=== PATIENT | female | born 1950 | race Two or more races ===

== ENCOUNTER 2020-06-18 00:39 | Inpatient (IN) | payer MEDICARE, OTHER ==
[~2020-06-18] VITALS: Ht 162.6 cm; Wt 136.6 kg
[2020-06-18] MEDS ORDERED: methylPREDNISolone SOD SUCC 125 MG/2ML VIAL ONE (00:55)
[2020-06-18] MEDS ORDERED: ACETAMINOPHEN 325 MG TABLET PO ONE (01:00)
[2020-06-18] MEDS ORDERED: ALBUTEROL FS 2.5 MG/3 ML VIAL.NEB ONE (01:00)
[2020-06-18] MEDS ORDERED: methylPREDNISolone SOD SUCC 125 MG/2ML VIAL IV ONE (01:00)
[2020-06-18] MEDS ORDERED: ALBUTEROL FS 2.5 MG/3 ML VIAL.NEB NEB ONE (01:00)
--- NOTE | 2020-06-18 01:00 | NUR ---
BIBEMS C/O RAPID HEART RATE 160'S, ADENOSINE 6MG IVP GIVEN - HR-80'S. PT AOX4 BEBO WHEEZING NOTED. PER RA PLACED IV ON LEFT FA 20G. PT GOWNED AND PLACED ON MONITOR. DR. SCHMITZ AT BEDSIDE FOR EVAL.
[2020-06-18] MEDS ORDERED: ACETAMINOPHEN ES 500 MG TABLET ONE (01:02)
--- NOTE | 2020-06-18 01:05 | NUR ---
PT NOTED WITH ROOM AIR 02 AT 89%, PT PLACED ON NC 2L, RT AT BEDSIDE FOR BREATHING TX
[2020-06-18 01:10] LABS: BASOPHILS # (AUTO) 0.1 /CMM (0.0-0.2); BASOPHILS % (AUTO) 0.6 % (0.0-2.0); EOSINOPHILS % (AUTO) 2.6 % (0.0-6.0); HEMATOCRIT 39 % (33-45); HEMOGLOBIN 12.6 g/dL (11.5-14.8); LYMPHOCYTES % (AUTO) 26.8 % (20.0-44.0); MEAN CORPUSCULAR HGB CONC 32 g/dl (31.0-36.0); MEAN CORPUSCULAR VOLUME 85 fL (82-100); MONOCYTES # (AUTO) 0.8 /CMM (0.1-1.30); MONOCYTES % (AUTO) 7.3 % (2.0-12.0); NEUTROPHILS % (AUTO) 62.7 % (43.0-81.0); PLATELET COUNT (AUTO) 426 /CMM (150-450); RED BLOOD CELL COUNT(AUTO) 4.57 MIL/uL (4.0-5.2); WHITE BLOOD COUNT (AUTO) 11.1 K/uL (4.3-11.0)
--- NOTE | 2020-06-18 01:13 | NUR ---
CALLED LAB FOR COVID TEST.
--- NOTE | 2020-06-18 01:15 | NUR ---
RT called for neb tx. pt found on ra, saturation 88%. per rn, wanted to see pt's baseline saturation. lung sounds: expiratory rhonchi throughout. no sob, no resp distress. will reassess post tx.
--- NOTE | 2020-06-18 01:16 | NUR ---
COVID SWABS COLLECTED. SENT TO LAB
--- NOTE | 2020-06-18 01:22 | NUR ---
S/P BREATHING TX PT NOTED AT 91% ON 3LNC. DR. SCHMITZ AWARE
[2020-06-18] MEDS ORDERED: IPRATROPIUM NEB FS 0.5 MG/2.5 ML AMPUL.NEB ONE (01:24)
[2020-06-18] MEDS ORDERED: ALBUTEROL FS 2.5 MG/0.5 ML VIAL.NEB ONE (01:24)
[2020-06-18] MEDS ORDERED: CEFTRIAXONE 1GM BAG (ER ONLY) 50 ML IV ONE (01:25)
[2020-06-18] MEDS ORDERED: CEFTRIAXONE 1GM BAG (ER ONLY) 1 GM/50 ML PIGGYBACK IV ONE (01:30)
[2020-06-18] MEDS ORDERED: ALBUTEROL FS 2.5 MG/0.5 ML VIAL.NEB NEB ONE (01:30)
[2020-06-18] MEDS ORDERED: IPRATROPIUM NEB FS 0.5 MG/2.5 ML AMPUL.NEB NEB ONE (01:30)
[2020-06-18] MEDS ORDERED: AZITHROMYCIN 500 MG in IV D5W 250 ML IV ONE (01:30)
[2020-06-18] MEDS ORDERED: AZITHROMYCIN 500 MG VIAL ONE (01:32)
[2020-06-18 01:33] LABS: ALANINE AMINOTRANSFERASE 20 U/L (12-78); ALBUMIN 3.5 g/dL (3.4-5.0); ALKALINE PHOSPHATASE 83 U/L (46-116); ASPARTATE AMINOTRANSFERASE 14 U/L (15-37); B-TYPE NATRIURETIC PEPTIDE 601 PG/ML (0-125); BILIRUBIN,DIRECT 0.1 mg/dL (0.0-0.2); BILIRUBIN,TOTAL 0.5 mg/dL (0.2-1.0); CALCIUM, SERUM 9.2 mg/dL (8.5-10.1); CARBON DIOXIDE 29 mmol/L (21-32); CHLORIDE 105 mmol/L (98-107); CREATININE 0.8 mg/dL (0.6-1.3); GLUCOSE 134 mg/dL (74-106); POTASSIUM 4.2 mmol/L (3.5-5.1); SODIUM SERUM 141 mmol/L (136-145); TOTAL PROTEIN, SERUM 7.7 g/dL (6.4-8.2); UREA NITROGEN, BLOOD 22 mg/dL (7-18)
--- NOTE | 2020-06-18 01:40 | NUR ---
RT post tx pt states breathing better. lung sounds insp/exp rhonchi with insp wheezing. placed on 3 lnc. will recommend another tx to .
--- NOTE | 2020-06-18 01:41 | NUR ---
DR. FARLEY PAGED PER ER ORDER.
--- NOTE | 2020-06-18 01:56 | NUR ---
REC'D NEG COVID RESULTS. AWARE
[2020-06-18] MEDS ORDERED: FUROSEMIDE 40 MG/4 ML VIAL ONE (01:58)
--- NOTE | 2020-06-18 01:58 | NUR ---
RT post tx insp/exp wheezing. saturation 91% on 3lnc. no sob, no resp distress. per md, maintain as long as no sob/distress
[2020-06-18] MEDS ORDERED: FUROSEMIDE 40 MG/4 ML VIAL IV ONE (02:00)
[2020-06-18] MEDS ORDERED: ZOLPIDEM TARTRATE 5 MG TABLET PO PRN (02:30)
[2020-06-18] MEDS ORDERED: ACETAMINOPHEN 325 MG TABLET PO PRN (02:30)
[2020-06-18] MEDS ORDERED: MAGNESIUM HYDROXIDE 30 ML UDC PO PRN (02:30)
[2020-06-18] MEDS ORDERED: ENOXAPARIN SODIUM 40 MG/0.4 ML DISP.SYRIN SQ SCH ×2 (02:30→03:41)
[2020-06-18] MEDS ORDERED: MAG HYDROX/AL HYDROX/SIMETH 30 ML UDC PO PRN (02:30)
[2020-06-18] MEDS ORDERED: Z GUARD REMEDY 2 OZ OINT TP PRN (02:30)
[2020-06-18] MEDS ORDERED: ENOXAPARIN SODIUM 60 MG/0.6 ML DISP.SYRIN SQ ONE (02:40)
--- NOTE | 2020-06-18 03:10 | NUR ---
PT ASLEEP, VSS.
--- NOTE | 2020-06-18 04:06 | NUR ---
PT REMAINS ASLEEP, VSS.
--- NOTE | 2020-06-18 04:07 | NUR ---
CURRENTLY ON 3L NC, SAT 90%.
--- NOTE | 2020-06-18 04:16 | NUR ---
PT WAS ASLEEP, USING HER MOUTH TO BREATH. PT SAT 84%. SIMPLE MASK PLACED ON PT AT 10L. NOW SAT93%.
[2020-06-18] MEDS: NITROGLYCERIN PACKET 1 GM PACKET TOP SCH ×2 (04:20→16:28)
[2020-06-18] MEDS ORDERED: NITROGLYCERIN PACKET 1 GM PACKET ONE (04:20)
--- NOTE | 2020-06-18 06:33 | NUR ---
PT REMAINS ASLEEP, VSS. PROVIDED WITH BLANKETS.
--- NOTE | 2020-06-18 07:41 | NUR ---
REPORT GIVEN TO MARAL CERON FOR AMALIA
[2020-06-18] MEDS ORDERED: ASPI-992 PO (11:54)
[2020-06-18] MEDS ORDERED: GUAI-671 PO (11:54)
[2020-06-18] MEDS ORDERED: ALBU8.5H8 IH (11:54)
[2020-06-18] MEDS ORDERED: NA P133E RC (11:54)
[2020-06-18] MEDS ORDERED: ACET325T53 PO (11:54)
[2020-06-18] MEDS ORDERED: ALPR1TAB2 PO (11:54)
[2020-06-18] MEDS ORDERED: MAGN400O6 PO (11:54)
[2020-06-18] MEDS ORDERED: BISA10SU61 RC (11:54)
[2020-06-18] MEDS ORDERED: SERT25TA5 PO (11:55)
[2020-06-18] MEDS ORDERED: MORP30TA7 PO (11:55)
[2020-06-18] MEDS ORDERED: GABA300C PO (11:55)
[2020-06-18] MEDS ORDERED: ATOR40TA PO (11:55)
[2020-06-18] MEDS ORDERED: BACL10TA PO (11:55)
[2020-06-18] MEDS ORDERED: LIDO700A30 TP (11:55)
[2020-06-18] MEDS ORDERED: AMLO-213 PO (11:55)
--- NOTE | 2020-06-18 12:30 | NUR ---
provided pt with lunch ate 70%
[2020-06-18] MEDS ORDERED: HYDROCODONE/APAP 5/325MG TABLET ONE (16:26)
[2020-06-18] MEDS: HYDROCODONE/APAP 5/325MG TABLET PO PRN (16:28)
[2020-06-18] MEDS ORDERED: CRAN425C6 PO (17:17)
[2020-06-18] MEDS ORDERED: HYDR-4354 PO (17:17)
[2020-06-18] MEDS ORDERED: CALC-17 PO (17:17)
[2020-06-18] MEDS ORDERED: DILT-32 PO (17:17)
[2020-06-18] MEDS ORDERED: METO25TA6 PO (17:17)
[2020-06-18] MEDS ORDERED: OLME20TA23 PO (17:17)
[2020-06-18] MEDS ORDERED: SENN-175 PO (17:17)
--- NOTE | 2020-06-18 18:30 | NUR ---
provide pt with dinner ate 70%
--- NOTE | 2020-06-18 19:56 | NUR ---
PATIENT AMBULATED TO THE RESTROOM WITH A STEADY GAIT.
[2020-06-18] MEDS: ENOXAPARIN SODIUM 40 MG/0.4 ML DISP.SYRIN SQ SCH (21:35)
--- NOTE | 2020-06-18 21:50 | NUR ---
PAGED DR. ELAM TO REVIEW MEDRECON, PT REQUESTING TO CONTINUE MEDS FROM ASSISTED
[2020-06-19] MEDS ORDERED: HYDROCODONE/APAP 5/325MG TABLET ONE ×2 (05:00→14:44)
[2020-06-19] MEDS: HYDROCODONE/APAP 5/325MG TABLET PO PRN ×2 (05:05→14:46)
[2020-06-19] MEDS: NITROGLYCERIN PACKET 1 GM PACKET TOP SCH ×2 (05:59→16:07)
[2020-06-19] MEDS ORDERED: NITROGLYCERIN PACKET 1 GM PACKET ONE (06:00)
[2020-06-19 06:05] LABS: BASOPHILS # (AUTO) 0.1 /CMM (0.0-0.2); BASOPHILS % (AUTO) 0.8 % (0.0-2.0); HEMATOCRIT 37 % (33-45); HEMOGLOBIN 11.7 g/dL (11.5-14.8); LYMPHOCYTES # (AUTO) 2.4 /CMM (0.8-4.8); LYMPHOCYTES % (AUTO) 17.3 % (20.0-44.0); MEAN CORPUSCULAR HGB CONC 32 g/dl (31.0-36.0); MEAN CORPUSCULAR VOLUME 85 fL (82-100); MONOCYTES # (AUTO) 1.1 /CMM (0.1-1.30); MONOCYTES % (AUTO) 8.1 % (2.0-12.0); NEUTROPHILS # (AUTO) 10.1 /CMM (1.8-8.9); NEUTROPHILS % (AUTO) 73.8 % (43.0-81.0); PLATELET COUNT (AUTO) 406 /CMM (150-450); RED BLOOD CELL COUNT(AUTO) 4.36 MIL/uL (4.0-5.2); WHITE BLOOD COUNT (AUTO) 13.7 K/uL (4.3-11.0)
[2020-06-19 06:30] LABS: CALCIUM, SERUM 9.5 mg/dL (8.5-10.1); CREATININE 0.7 mg/dL (0.6-1.3); MAGNESIUM 2.3 mg/dL (1.8-2.4); POTASSIUM 3.7 mmol/L (3.5-5.1)
[2020-06-19 06:36] LABS: THYROID STIMULATING HORMONE 0.171 uIU/mL (0.358-3.74)
[2020-06-19 06:39] LABS: PHOSPHORUS 3.6 mg/dL (2.5-4.9)
[2020-06-19] MEDS ORDERED: ONDANSETRON HCL/PF 4 MG/2 ML VIAL ONE ×2 (07:01→15:58)
[2020-06-19] MEDS: ONDANSETRON HCL/PF 4 MG/2 ML VIAL IVP PRN ×2 (07:06→15:56)
--- NOTE | 2020-06-19 10:15 | NUR ---
PT AWAKE, VERBALLY RESPONSIVE. ON MONITOR SATTING AT 91% PLACED ON O2@2L/MIN. WILL CONTINUE TO MONITOR.
[2020-06-19] MEDS: METOPROLOL TARTRATE 25 MG TABLET PO SCH ×2 (15:30→21:37)
[2020-06-19] MEDS ORDERED: FUROSEMIDE 20 MG/2 ML VIAL IV ONE (16:30)
--- NOTE | 2020-06-19 17:43 | NUR ---
patient refused lasix 20 mg IVP. Explained the risk and benefits x 3 and still refused. MD notified and made aware.
--- NOTE | 2020-06-19 17:46 | NUR ---
ANIVAL RUTLEDGE GAVE TELE BED 320-2.
--- NOTE | 2020-06-19 19:06 | NUR ---
report given to anahy amaya at [facility]
[2020-06-19 19:15] VITALS: BP 148/74
--- NOTE | 2020-06-19 19:32 | NUR ---
pt transferred to 320-2
[2020-06-19] MEDS: ALBUTEROL FS 2.5 MG/0.5 ML VIAL.NEB NEB SCH (19:43)
[2020-06-19] MEDS: IPRATROPIUM NEB FS 0.5 MG/2.5 ML AMPUL.NEB NEB SCH ×2 (19:44→23:26)
[2020-06-19 20:00] VITALS: BP 148/74
[2020-06-19] MEDS: ENOXAPARIN SODIUM 40 MG/0.4 ML DISP.SYRIN SQ SCH (21:39)
[2020-06-20] VITALS: BP 158/70
[2020-06-20] MEDS ORDERED: CEFTRIAXONE 1 G VIAL ONE (00:34)
[2020-06-20] MEDS: CEFTRIAXONE 1 G in IV D5W 50 ML IV SCH (00:40)
--- NOTE | 2020-06-20 01:02 | NUR ---
TELERN RECEIVED REPORT FROM OUTGOING RN. DENIES ANY DISCOMFORTS FOR NOW. NO SOB SEEN. STARTED ON ROCEPHINE 1 GM IVPB. ZIHROMAX IV TO FOLLOW. AFEBRILE. SR ON THE MONITOR.
--- NOTE | 2020-06-20 01:10 | NUR ---
REPORTS GIVEN TO OSMANY GILES FOR CONTINUITY OF CARE.
[2020-06-20] MEDS ORDERED: AZITHROMYCIN 500 MG VIAL ONE (01:17)
[2020-06-20] MEDS: ALBUTEROL FS 2.5 MG/0.5 ML VIAL.NEB NEB SCH ×4 (01:30→19:39)
[2020-06-20] MEDS: AZITHROMYCIN 500 MG in IV D5W 250 ML IV SCH (02:22)
--- NOTE | 2020-06-20 02:30 | NUR ---
MSRN NAUSEATED, ZOFRAN 4MG IVP ADMINISTERED ORDERED. COMPLETE BEDREST FOR NOW.
[2020-06-20] MEDS: ONDANSETRON HCL/PF 4 MG/2 ML VIAL IVP PRN (02:37)
[2020-06-20] MEDS: IPRATROPIUM NEB FS 0.5 MG/2.5 ML AMPUL.NEB NEB SCH ×6 (03:30→23:36)
[2020-06-20 04:00] VITALS: BP 138/70
[2020-06-20] MEDS: NITROGLYCERIN PACKET 1 GM PACKET TOP SCH ×2 (05:35→16:55)
--- NOTE | 2020-06-20 06:45 | NUR ---
TELERN ALL NEEDS ATTEENDED. WILL ENDORSE TO INCOMING RN REGARDING MED RECON.
[2020-06-20 07:58] LABS: BASOPHILS % (AUTO) 0.4 % (0.0-2.0); EOSINOPHILS % (AUTO) 0.1 % (0.0-6.0); HEMATOCRIT 38 % (33-45); HEMOGLOBIN 11.9 g/dL (11.5-14.8); LYMPHOCYTES # (AUTO) 2.1 /CMM (0.8-4.8); MEAN CORPUSCULAR HGB CONC 32 g/dl (31.0-36.0); MEAN CORPUSCULAR VOLUME 85 fL (82-100); MONOCYTES # (AUTO) 0.8 /CMM (0.1-1.30); MONOCYTES % (AUTO) 7.7 % (2.0-12.0); NEUTROPHILS # (AUTO) 7.1 /CMM (1.8-8.9); NEUTROPHILS % (AUTO) 70.8 % (43.0-81.0); PLATELET COUNT (AUTO) 412 /CMM (150-450); RED BLOOD CELL COUNT(AUTO) 4.41 MIL/uL (4.0-5.2)
[2020-06-20 08:00] VITALS: BP 152/75
--- NOTE | 2020-06-20 08:00 | NUR ---
RN Opening note Received patient in bed, AO x 4 able to responds all stimuli, Pt does no appears pain or distress. Skin is warm to touch keep clean/dry intact IV site, respiratory even and unlabored with oxygen at 2LPM via n/c O2sat 92%. Kept locked bed with elevated HOB for aspiration precaution and ensure airway and lowest bed foe safety. Call light within reach, will continue to monitor.
[2020-06-20 08:23] LABS: CALCIUM, SERUM 9.2 mg/dL (8.5-10.1); CREATININE 0.6 mg/dL (0.6-1.3); MAGNESIUM 2.2 mg/dL (1.8-2.4); PHOSPHORUS 2.9 mg/dL (2.5-4.9); POTASSIUM 3.6 mmol/L (3.5-5.1)
[2020-06-20] MEDS: predniSONE 20 MG TABLET PO SCH (08:49)
[2020-06-20] MEDS: METOPROLOL TARTRATE 25 MG TABLET PO SCH ×2 (08:49→21:01)
[2020-06-20 12:00] VITALS: BP 133/59
[2020-06-20] MEDS ORDERED: SALINE NASAL SPRAY 0.65% 1 BOTTLE BOTTLE NS PRN (12:30)
[2020-06-20 16:00] VITALS: BP 159/77
[2020-06-20] MEDS: FLUTICASONE PROPIONATE 16 GM BOTTLE NS SCH (16:55)
[2020-06-20] MEDS ORDERED: FLUT16SP16 NS (17:30)
[2020-06-20] MEDS ORDERED: AMOX500C2 PO (17:30)
[2020-06-20] MEDS ORDERED: BECL10.6 IH (17:30)
[2020-06-20] MEDS ORDERED: PRED20TA PO (17:30)
--- NOTE | 2020-06-20 18:38 | NUR ---
RN Closing note Patient in bed finished meal, does no appears pain or discomfort. Respiratory even and unlabored with room air O2sat 92%%. Skin is warm to touch keep clean/dry, intact IV site. Kept locked bed with elevated HOB for ensure airway and aspiration precaution and lowest bed for safety. Patient return to [facility] and waiting for respond.Call light within reach will endorse cattle brander.
--- NOTE | 2020-06-20 19:40 | NUR ---
RN OPENING NOTES PATIENT RECEIVEF RESTING IN BED A/O X 4. STABLE ON RA WITH BREATHING MAURISIO AND UNLABORED, NO SOB NOTED. NO SIGNS OF ACUTE DISTRESS. NO COMPLAINTS OF PAIN OR DISCOMFORT. IV LOCATED ON RIGHT AND AND LEFT FA #20 PATENT AND INTACT.SAFETY PRECAUTIONS IN PLACE WITH BED IN LOWEST POSITION, CALL LIGHT WITHIN REACH, BREAKS ON, SIDE RAILS UP. AWAITING DISCHARGE.
--- NOTE | 2020-06-20 19:42 | NUR ---
RN OPENING NOTES PATIENT RECEIVED RESTING IN BED A/O X 3. ON 2L OF O2 WITH BREATHING EVEN AND UNLABORED,NO SOB NOTED. NO SIGNS OF ACUTE DISTRESS. NO COMPLAINTS OF PAIN OR DISCOMFORT. IV LOCATED ON R HAND PATENT AND INTACT. SAFETY PRECAUTIONS IN PLACE WITH BED IN LOWEST POSITION, CALL LIGHT WITHIN REACH, BREAKS ON, SIDE RAILS UP. Addendum: 06/21/20 at 0736 by CESAR ARMSTRONG RN WRONG PATIENT
[2020-06-20 20:00] VITALS: BP 134/64
[2020-06-20] MEDS: ENOXAPARIN SODIUM 40 MG/0.4 ML DISP.SYRIN SQ SCH (21:02)
--- NOTE | 2020-06-20 21:26 | NUR ---
PATIENT WILL STAY THROUGHOUT THE NIGHT DUE TO FACILITY NOT ANSWERING- PER CASE MANAGEMENT
[2020-06-21] VITALS: BP 145/64
[2020-06-21] MEDS: CEFTRIAXONE 1 G in IV D5W 50 ML IV SCH (01:07)
[2020-06-21] MEDS: AZITHROMYCIN 500 MG in IV D5W 250 ML IV SCH (02:21)
[2020-06-21] MEDS: ALBUTEROL FS 2.5 MG/0.5 ML VIAL.NEB NEB SCH ×4 (02:30→13:09)
[2020-06-21] MEDS: IPRATROPIUM NEB FS 0.5 MG/2.5 ML AMPUL.NEB NEB SCH ×4 (02:31→11:27)
[2020-06-21 04:00] VITALS: BP 145/70
[2020-06-21] MEDS: NITROGLYCERIN PACKET 1 GM PACKET TOP SCH (05:20)
[2020-06-21 06:40] LABS: BASOPHILS # (AUTO) 0.1 /CMM (0.0-0.2); BASOPHILS % (AUTO) 0.6 % (0.0-2.0); EOSINOPHILS % (AUTO) 0.1 % (0.0-6.0); HEMATOCRIT 38 % (33-45); HEMOGLOBIN 12.3 g/dL (11.5-14.8); LYMPHOCYTES # (AUTO) 2.2 /CMM (0.8-4.8); LYMPHOCYTES % (AUTO) 20.6 % (20.0-44.0); MEAN CORPUSCULAR HGB CONC 32 g/dl (31.0-36.0); MEAN CORPUSCULAR VOLUME 85 fL (82-100); MONOCYTES # (AUTO) 1.1 /CMM (0.1-1.30); MONOCYTES % (AUTO) 9.9 % (2.0-12.0); NEUTROPHILS # (AUTO) 7.3 /CMM (1.8-8.9); NEUTROPHILS % (AUTO) 68.8 % (43.0-81.0); PLATELET COUNT (AUTO) 422 /CMM (150-450); RED BLOOD CELL COUNT(AUTO) 4.47 MIL/uL (4.0-5.2); WHITE BLOOD COUNT (AUTO) 10.6 K/uL (4.3-11.0)
[2020-06-21 06:48] LABS: CALCIUM, SERUM 9.3 mg/dL (8.5-10.1); CREATININE 0.7 mg/dL (0.6-1.3); MAGNESIUM 2.3 mg/dL (1.8-2.4); PHOSPHORUS 2.7 mg/dL (2.5-4.9); POTASSIUM 3.2 mmol/L (3.5-5.1)
--- NOTE | 2020-06-21 07:41 | NUR ---
RN OPENING NOTED PATIENT IN BED, AWAKE. A/O X4 ABLE TO MAKE NEEDS KNOWN. DENIES PAIN OR DISCOMFORT. ON CARDIAC MONITORING, SR AT 70'S. ON ROOM AIR, TOLERATING WELL. RESPIRATIONS ARE EVEN AND NONLABORED. IV ON LFA #20 INTACT AND PATENT. IV ON RIGHT HAND #20 INTACT AND PATENT. BED IS LOWERED POSITION, LOCKED, AND SIDE RAILS UPX2. WILL CONTINUE TO MONITOR. Patient in bed finished meal, does no appears pain or discomfort. Respiratory even and unlabored with room air O2sat 92%%. Skin is warm to touch keep clean/dry, intact IV site. Kept locked bed with elevated HOB for ensure airway and aspiration precaution and lowest bed for safety. Patient return to and waiting for respond.Call light within reach will endorse night nurse.
--- NOTE | 2020-06-21 07:46 | NUR ---
RN CLOSING NOTES PATIENT RESTING IN BED A/O X 4. STABLE ON RA WITH BREATHING MAURISIO AND UNLABORED, NO SOB NOTED. NO SIGNS OF ACUTE DISTRESS. NO COMPLAINTS OF PAIN OR DISCOMFORT. IV LOCATED ON RIGHT AND AND LEFT FA #20 PATENT AND INTACT.SAFETY PRECAUTIONS IN PLACE WITH BED IN LOWEST POSITION, CALL LIGHT WITHIN REACH, BREAKS ON, SIDE RAILS UP. ALL NEEDS ATTENDED TO THROUGHOUT THE NIGHT. WILL ENDORSE TO ONCOMING SHIFT ABOUT AMALIA.
[2020-06-21 08:00] VITALS: BP 150/73
[2020-06-21 08:36] VITALS: BP 150/73
[2020-06-21] MEDS: METOPROLOL TARTRATE 25 MG TABLET PO SCH (08:36)
[2020-06-21] MEDS: predniSONE 20 MG TABLET PO SCH (08:36)
[2020-06-21] MEDS: FLUTICASONE PROPIONATE 16 GM BOTTLE NS SCH (08:38)
[2020-06-21] MEDS: POTASSIUM CHLORIDE 20 MEQ TAB.PRT.SR PO SCH ×2 (10:13→11:19)
--- NOTE | 2020-06-21 12:34 | NUR ---
REGULATORY SCIENTIST NOTES EDUCATED PATIENT DISCHARGE INSTRUCTIONS. PATIENT CAME TO HOSPITAL WITH NO BELONGINGS. VERBALIZED UNDERSTANDING AND SIGNED DISCHARGE PAPER AND BELONGING FORMS. CALLED [facility] AND GAVE REPORT TO NAE CERON, VERBALIZED UNDERSTANDING.
--- NOTE | 2020-06-21 14:41 | NUR ---
AUTOMOBILE BODY REPAIR SUPERVISOR NOTES PT DISCHARGED TO [facility] IN STABLE CONDITION. A/O X4. ABLE TO MAKE NEEDS KNOWN. AMBULATORY WITH FWW. V/S TAKEN AND RECORDED. PHOTOS OF SKIN ISSUES TAKEN AND FILED IN HER CHART. NO BELONGINGS NOTED. PIV'S ON LFA AND RIGHT HAND BOTH REMOVED WITH NO ACTIVE BLEEDING NOTED, DRY DRESSINGS APPLIED TO SITES. CALLED AND REPORT GIVEN TO RN HUBER OF [facility]. HEALTH TEACHINGS GIVEN TO PT AND VERBALIZED UNDERSTANDING. PT LEFT UNIT AT 1425 VIA GURNEY ACCOMPANIED BY [facility]. MD AND CHARGE NURSE AWARE OF DISCHARGE.
== END 2020-06-21 14:30 | DRG 871 ==
LOC: ER 00:43 → TRANSITION 03:17 → TELE 06-19 17:47
PROVIDERS: ADMIT Student in an Organized Health Care Education/Training Program; ATTEND Student in an Organized Health Care Education/Training Program
DX: A41.9 Sepsis, unspecified organism (principal); J18.9 Pneumonia, unspecified organism; J96.01 Acute respiratory failure with hypoxia; I47.1 Supraventricular tachycardia; J45.901 Unspecified asthma with (acute) exacerbation; E66.2 Morbid (severe) obesity with alveolar hypoventilation; Z68.43 Body mass index [BMI] 50.0-59.9, adult; M19.90 Unspecified osteoarthritis, unspecified site; E78.5 Hyperlipidemia, unspecified; G47.33 Obstructive sleep apnea (adult) (pediatric); E87.70 Fluid overload, unspecified; M62.81 Muscle weakness (generalized); D72.829 Elevated white blood cell count, unspecified; G90.9 Disorder of the autonomic nervous system, unspecified; I51.7 Cardiomegaly; M81.0 Age-related osteoporosis without current pathological fracture; Z20.828 Contact with and (suspected) exposure to other viral communicable diseases; Z87.01 Personal history of pneumonia (recurrent)
CPT/HCPCS: 36415; 71045-TC; 80048-TC; 80061-TC; 80076-TC; 83605-TC; 83735-TC; 83880; 84100-TC; 84439-TC; 84443-TC; 84484-TC; 85025-TC; 87040-TC; 87081-TC; 93307-TC; 94799-TC; C9803; G0378; J0456; J0696; J1650; J1940; J2405; J2930; J7040; J7060; U0003